=== PATIENT | female | born 1950 | race Two or more races ===

== ENCOUNTER 2021-04-06 12:14 | Emergency (ER) | payer MEDICAID, OTHER ==
[~2021-04-06] VITALS: Ht 147.3 cm; Wt 76.2 kg
[2021-04-06 13:21] LABS: Basophils # (auto) 0 10 ^3/uL (0-0.2); Basophils % (auto) 0.4 % (0.0-2.0); Eosinophils # (auto) 0 10 ^3/uL (0-0.8); Eosinophils % (auto) 0.6 % (0.0-7.0); Hemoglobin 12.8 g/dL (12.2-16.2); Lymphocytes # (auto) 2.8 10 ^3/uL (0.4-5.4); Lymphocytes % (auto) 39.6 % (10.0-50.0); Mean Corpuscular Hemoglobin 31.9 pg (28.0-32.0); Mean Corpuscular Hgb Conc. 33.6 g/dL (32.0-36.0); Monocytes # (auto) 0.5 10 ^3/uL (0-1.3); Monocytes % (auto) 6.8 % (0.0-12.0); Neutrophils # (auto) 3.7 10 ^3/uL (1.6-8.6); Neutrophils % (auto) 52.6 % (37.0-80.0); Nucleated Red Blood Cells % 0.1 %; Platelet Count (auto) 216 10^3/uL (140-450); Red Cell Distribution Width 13.1 % (11.8-14.3)
[2021-04-06 13:24] LABS: Albumin 3.4 g/dL (3.4-5.0); Anion Gap 6 (5-15); Blood Urea Nitrogen 15 mg/dL (7-18); Calcium 8.4 mg/dL (8.5-10.1); Carbon Dioxide 26 mmol/L (21-32); Chloride 107 mmol/L (98-107); Glucose 96 mg/dL (74-106); Potassium 4.1 mmol/L (3.5-5.1); Sodium 139 mmol/L (136-145)
[2021-04-06 13:32] LABS: Alanine Aminotransferase 38 U/L (13-56); Alkaline Phosphatase 112 U/L (45-117); Aspartate Aminotransferase 22 U/L (15-37); BUN/Creatinine Ratio 20.5; Bilirubin, Total 0.3 mg/dL (0.2-1.0); GFR African American 102 mL/min; GFR Non-African American 84 mL/min; Total Protein 7.4 g/dL (6.4-8.2)
[2021-04-06] MEDS ORDERED: ASPirin 81 mg TAB PO ONE (14:30)
[2021-04-06 15:44] LABS: INR 0.94 (0.9-1.15)
[2021-04-06] MEDS ORDERED: IOHEXOL 350 MG/ML 100ML IJ ONE (17:08)
[2021-04-06 18:28] VITALS: BP 120/52
== END 2021-04-06 19:06 | disposition home or self-care (01) ==
LOC: ER 12:18
DX: R07.89 Other chest pain (principal); I10 Essential (primary) hypertension; E78.5 Hyperlipidemia, unspecified
CPT/HCPCS: 36415; 71045; 71275; 80053; 83735; 83880; 84443; 84484; 85025; 85379; 85610; 85730; 93005; 99285; Q9967